=== PATIENT | male | born 1985 | race Caucasian/White ===

== ENCOUNTER 2020-10-12 06:06 | Emergency (ER) | payer MEDICAID ==
[~2020-10-12] VITALS: Ht 165.1 cm; Wt 75.3 kg
[2020-10-12] MEDS ORDERED: KETOROLAC 60MG/2ML VIAL IM ONE (07:45)
[2020-10-12 09:06] VITALS: BP 115/71
== END 2020-10-12 09:07 | disposition home or self-care (01) ==
LOC: ER 06:06
DX: J02.9 Acute pharyngitis, unspecified (principal); Z98.890 Other specified postprocedural states
CPT/HCPCS: 70490; 87070; 87430; 96372; 99284; J1885

== ENCOUNTER 2022-03-22 23:27 | Emergency (ER) | payer OTHER, MEDICAID ==
[~2022-03-22] VITALS: Ht 160 cm; Wt 69.0 kg
[2022-03-23] MEDS ORDERED: KETOROLAC 60MG/2ML VIAL IM ONE (03:15)
[2022-03-23] MEDS ORDERED: COLC0.6C3 MT (03:38)
[2022-03-23] MEDS ORDERED: INDO50CA98 MT (03:38)
[2022-03-23 04:42] VITALS: BP 118/69
== END 2022-03-23 05:05 | disposition home or self-care (01) ==
LOC: ER 23:27
DX: M79.669 Pain in unspecified lower leg (principal); Z59.00 Homelessness unspecified; Z98.890 Other specified postprocedural states
CPT/HCPCS: 73660; 96372; 99283; J1885